=== PATIENT | male | born 1985 | race Asian ===

== ENCOUNTER 2024-09-12 11:01 | Outpatient (AMB) | payer OTHER, SELFPAY ==
--- NOTE | 2024-09-12 11:12 | MHC.PC.OV ---
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 Intake Note: patient here for new patient visit Rubberizing Mechanic Required: No Allergies No Known Allergies Allergy (Verified 09/12/24 11:32) Medication List - Last Reconciled 09/12/24 by Taylor Friedman CNP No Known Home Meds Tobacco use date assessed: 09/12/24 Dental Screening Dental Screen Date: 09/12/24 Did you have a dental visit in the last 12 months?: No Did you have a dental problem in the last 6 months where you did not have access to dental care?: No Was dental information given to patient?: Yes HPI HPI Comments History of Present Illness Details 38-year-old male [facility]. Relocated from [facility] to [facility] on 06/2024. Prior PCP? - In [place] Last office visit/CPE/labs - About 2 years ago Acute issue(s) - Fatigue, generalized body aches, and difficulty breathing, intermittent productive cough with green mucus, and nausea for the past 1 week. He was evaluated at [facility] ED on 09/10/2024. Most of his symptoms have completely resolved. Continues to experience mild generalized body aches and intermittent productive cough. His has similar symptoms. Review of [facility] ED notes on 09/10/2024: Labs, including TSH, EKG, and chest xray were reassuring. He was discharged home on Zofran. Past Medical History - Strabismus left eye (wears prescription glasses), Herniated disc L5 and S1 Surgical History - Back surgery (L5 and S1), left eye surgery to correct strabismus Family History - Mom: Diabetes, hypertension, hyperlipidemia, thyroid disorder - Dad: Cardiovascular disease, diabetes, hypertension, hyperlipidemia - MGM: Cardiovascular disease, diabetes, hypertension, hyperlipidemia - MGF: Hypertension - PGF: Hypertension Social History - Nonsmoker. Vapes 10 puffs of nicotine every 2 days, has been cutting down. Does not drink alcohol. Denies recreational drug use. - Has been making healthy dietary choices. Does not exercise. Generally sleep well. Health maintenance - Last eye exam was in February or March 2024 at [facility] in [place]. Routine eye care encouraged. He will sign a release for his PCP to obtain his eye record. - Last dental visit was over a year and half ago; encouraged to schedule an appointment with his dentist for routine dental care. - Last tetanus vaccine was more than 10 years ago; received Tdap vaccine today. - Has not been vaccinated for the flu this season; declines vaccination. [facility] Surgical History (Updated 09/12/24 @ 11:29 by Yanni Gutierrez) Previous back surgery History of eye surgery Family History (Updated 09/12/24 @ 11:29 by Yanni Gutierrez) Mother High blood pressure High cholesterol Diabetes Thyroid disorder Father High blood pressure High cholesterol Diabetes Cardiovascular disease Maternal Grandmother High blood pressure High cholesterol Diabetes Cardiovascular disease Maternal Grandfather High blood pressure Paternal Grandmother High blood pressure High cholesterol Diabetes Paternal Grandfather High blood pressure Social History Housing: House Patient Tobacco Use Status: Never used Tobacco Cigarettes Per Day: 1 (every 2 days with friends) e-Cigarette/Vaping Use: Currently Using Second Hand Smoke Exposure: No service: No Current occupational status: employed 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 1. Little interest or pleasure in doing things: not at all 2. Feeling down, depressed, or hopeless: not at all 3. Trouble falling or staying asleep, or sleeping too much: not at all 4. Feeling tired or having little energy: not at all 5. Poor appetite or overeating: not at all 6. Feeling bad about yourself - or that you are a failure or have let yourself or your family down: not at all 7. Trouble concentrating on things, such as reading the newspaper or watching television: not at all 8. Moving or speaking so slowly that other people could have noticed. Or the opposite - being so fidgety or restless that you have been moving around a lot more than usual: not at all 9. Thoughts that you would be better off or of hurting yourself in some way: not at all Total score: 0 Depression Screening Interpretation: Negative Depression Screening Done: Yes 99075 - PHQ-9 Billing: Yes Source: Developed by Drs. Delta Martin, Nahun Rossi and colleagues, with an educational rick from [employer]. Thrive Questionnaire Date Thrive assessed: 09/12/24 I am a: Patient What is your living situation today?: I have a steady place to live Within the past 12 months, did the food you bought not last and you didn't have the money to get more?: I choose not to answer this question Within the past 12 months, did you worry whether your food would run out before you got money to buy more?: I choose not to answer this question Do you have trouble paying for medicines?: Yes Do you have trouble getting transportation to medical appointments?: No Do you have trouble paying your heating and electricity bill?: No Do you have trouble taking care of your child, family member or friend?: No Do you have trouble with day-to-day activities such as bathing, preparing meals, shopping, managing finances, etc.?: No Are you currently unemployed and looking for a job?: No Are you interested in more education?: No Please select the resources that you would like help with: Food Currently or been in a relationship where the following occur: No concerns reported THRIVE Score: 0 AUDIT C Alcohol Use Questionnaire (AUDIT-C) 1. How often do you have a drink containing alcohol?: Never Total Score: 0 Score Reviewed/Action Taken: Yes KEYLA-7 AMB Questionnaire KEYLA-7 Date KEYLA - 7 assessed: 09/12/24 Feeling nervous, anxious, or on edge: 0 = Not at all Not being able to stop or control worryin = Not at all Worrying too much about different things: 0 = Not at all Trouble relaxin = Not at all Being so restless that it is hard to sit still: 0 = Not at all Becoming easily annoyed or irritable: 0 = Not at all Feeling afraid as if something awful might happen: 0 = Not at all Total KEYLA-7 score (0-4 normal; 5-9 mild; 10-14 moderate; 15-21 severe): 0 Source: Developed by Drs. Delta Martin, Nahun Rossi and colleagues, with an educational rick from [employer]. KEYLA-7 Assessment Billing KEYLA-7 Assessment Tool: KEYLA-7 Assessment 35039 Review of Systems Const Details: Denies chills, Denies fatigue, Denies fever(s), Denies headache(s) and Denies weakness HEENT Denies change in vision, Denies dizziness, Denies headache(s), Denies hearing loss, Denies nasal congestion, Denies sinus pain, Denies sinus pressure and Denies sore throat Card Denies chest pain, Denies lightheadedness, Denies dyspnea and Denies other (palpitations) Resp Reports cough, Denies dyspnea and Denies wheezing GI Denies abdominal pain, Denies melena, Denies hematochezia, Denies change in bowel habits, Denies dyspepsia and Denies nausea Denies hematuria and Denies dysuria Musc Reports myalgias, Denies abnormal gait, Denies arthralgias, Denies numbness and Denies tingling Skin/Breast Denies rash, Denies unusual bruising and Denies wounds Neuro Denies abnormal gait, Denies dizziness, Denies headache(s), Denies memory loss, Denies numbness, Denies Sensory deficit (Neuro), Denies tingling and Denies weakness Psych Denies anxiety, Denies depression and Denies memory loss Endo Denies cold intolerance, Denies fatigue, Denies heat intolerance, Denies polydipsia and Denies polyuria Rylan/Lymph Denies easy bleeding and Denies easy bruising Aller/Immun Denies wheezing Physical exam (Primary Care) Vital Signs: Last Vital Signs Temp 97.8 F 09/12/24 11:19 Pulse 81 09/12/24 11:19 Resp 16 09/12/24 11:19 BP 119/75 09/12/24 11:19 Pulse Ox 98 09/12/24 11:19 Oxygen Delivery Method Room Air 09/12/24 11:19 BMI result Body Mass Index 29.2 Tobacco/Smoking Status: Tobacco use Status Tobacco use date assessed 09/12/24 09/12/24 11:19 Patient Tobacco Use Status Current someday Tobacco 09/12/24 11:19 e-Cigarette/Vaping Use Currently Using 09/12/24 11:19 PHQ-9: PHQ-9 Score PHQ-9: Total score 0 09/12/24 11:15 Depression Screening Interpretation: Negative Thrive Assessment: Date of Thrive Assessment Date Thrive assessed 09/12/24 09/12/24 11:15 Currently or been in a relationship where the following occur: No concerns reported Const Other: General: no acute distress, well developed, alert and awake Nutritional Appearance: well nourished Orientation/consciousness: patient oriented x3 [facility] Head: Yes normocephalic and Yes atraumatic Ears: hearing grossly normal bilaterally and TM's normal bilaterally General nose exam: Normal external nose present and Normal nares present Mouth: Normal oral and palatal mucosa present and moist mucous membranes Teeth and gingiva: dentition normal Throat: Yes oropharynx normal Eyes Pupils: Equal, round and reactive pupils present and Pupil accommodation reflex normal EOM: EOMs intact bilaterally Neck Neck: Yes normal visual inspection, Yes no lymphadenopathy and Yes trachea midline Thyroid: Thyroid normal Carotids: no bruits Lymphatic: no lymphadenopathy noted Chest Chest palpation & inspection: normal inspection of the chest Resp Effort & Inspection: normal respiratory effort Auscultation: clear to auscultation bilaterally Cardio Rate: regular rate Rhythm: regular rhythm Heart sounds: S1 normal heart sound present, S2 normal heart sound present, no gallops, no murmurs and no rubs Bruits: no abdominal aortic bruits and no carotid bruits GI Palpation (GI): No Abdominal aortic bruit present, Soft to palpation, nontender, No hepatosplenomegaly present and No Rebound tenderness present Auscultation: normal bowel sounds General: Yes no CVA tenderness Back/Spine/Pelvis Back: no CVA tenderness Cervical Spine: cervical ROM normal and No Cervical spine tenderness Thoracic/Lumbar Spine: thoraco-lumbar ROM normal, No pain with thoraco-lumbar ROM, No thoracic spinal tenderness and No lumbar spinal tenderness Skin General: warm and dry. Normal skin color. Normal skin turgor Lesions: no lesions Rashes: no rashes Trauma: no lacerations or abrasions Wounds: no wounds Nails: normal Neuro General: patient oriented x3, gait normal and CN's II-XI intact bilaterally Cranial nerves: Yes Equal, round and reactive pupils present Cognition (Neuro): normal cognition Gait exam (Neuro): Normal gait present Motor exam (neuro): 5/5 motor strength present throughout Sensory Exam: No Sensory deficit (Neuro) Deep tendon reflexes (DTR's): Right patellar reflex intensity grade: 2+ and Left patellar reflex intensity grade: 2+ Extrem General: Yes normal to inspection, No edema and No calf tenderness Psych Appearance: grossly normal Affect: normal affect Attitude: cooperative Thought process: Normal thought process present Coding Level of Care Code New Pt Level 4 (88559) New Pt Prev Care 18-39yr(14104 Diagnoses Normal physical examination, routine Z00.00 Viral upper respiratory illness J06.9 Engages in vaping Z72.89 Laboratory tests ordered as part of a complete physical exam (CPE) Z00.00 Additional Codes KEYLA-7 Assessment Billing - KEYLA-7 Assessment Tool: KEYLA-7 Assessment 56820 ([id number]) PHQ-9 - 02896 - PHQ-9 Billing: Yes ([id number]) Assessment & Plan Assessment & Plan (1) Normal physical examination, routine: Code(s): Z00.00 - Encounter for general adult medical examination without abnormal findings Category: Medical Plan: No significant functional limitations noted. Will scan his recent blood work to his chart. Encouraged to get fasting lab work done and follow for telehealth visit for labs review in 6 weeks. Return sooner with symptoms or concerns. Verbalized understanding and agreed with treatment plan. (2) Viral upper respiratory illness: Code(s): J06.9 - Acute upper respiratory infection, unspecified Category: Medical Plan: Likely viral illness though possibly allergies. No exam evidence of bacterial infection Viral illness There is no antibiotic medication for viruses.? They must run their course.? Most average 5-7 days but 7-10 days is not uncommon and up to 14 days is still possible.? A cough is often the last symptom to resolve and this can last for weeks in some cases. Rest Hydrate well -? Drink plenty of fluids.? Especially water. Tylenol or ibuprofen for muscle aches, headache, fever/discomfort Cannot rule out COVID-19/RSV/Flu infection Nasal swab acquired and will be sent to the lab Return for new or worsening symptoms Verbalized understanding and agreed with treatment plan. (3) Engages in vaping: Code(s): Z72.89 - Other problems related to lifestyle Category: Medical Plan: He vapes 10 puffs of nicotine every 2 days and has been cutting down. Instructed on the health risks and complications of nicotine and vaping encouraged to stop. Declines medication treatment for nicotine use and notes that he would continue to cut down and stop vaping. Follow-up with PCP as needed. Verbalized understanding and agreed with the plan. (4) Laboratory tests ordered as part of a complete physical exam (CPE): Code(s): Z00.00 - Encounter for general adult medical examination without abnormal findings Category: Medical Plan: Fasting labs ordered as part of a complete physical exam. Advised to fast for at least 10 hours before getting labs drawn. May drink water Verbalized understanding and agreed with treatment plan. Orders: Orders Lipid Panel Today Z00.00 - Encounter for general adult medical examination without abnormal findings Glucose Fasting Today Z00.00 - Encounter for general adult medical examination without abnormal findings UA CC w/rflx Micro + Cult Today Z00.00 - Encounter for general adult medical examination without abnormal findings Complete Blood Count Auto Diff Today Z00.00 - Encounter for general adult medical examination without abnormal findings
[2024-09-12 11:19] VITALS: BP 119/75; PULSE 81; RESP 16; TEMP 36.6; O2SAT 98; BMI 29.2
== END 2024-09-12 12:10 | disposition home or self-care (01) ==
PROVIDERS: PCP Nurse Practitioner Family; Visit Provider Nurse Practitioner Family
DX: Z00.00 Encounter for general adult medical examination without abnormal findings (principal); J06.9 Acute upper respiratory infection, unspecified; Z72.89 Other problems related to lifestyle

== ENCOUNTER 2024-09-12 11:01 | Outpatient (REF) | payer OTHER, SELFPAY ==
[2024-09-12 18:28] LABS: Influenza A PCR NEGATIVE (Negative); Influenza B PCR NEGATIVE (Negative); Resp Syncy Virus RNA Qual PCR NEGATIVE (Negative); SARS COV2 PCR INHOUSE NEGATIVE (Negative)
== END 2024-09-12 11:02 | disposition home or self-care (01) ==
LOC: HO.LAB 11:01
PROVIDERS: PCP Nurse Practitioner Family; Visit Provider Nurse Practitioner Family
DX: Z00.01 Encounter for general adult medical examination with abnormal findings (principal); J06.9 Acute upper respiratory infection, unspecified; Z72.89 Other problems related to lifestyle
CPT/HCPCS: 0241U; 96127; 99202; 99385

== ENCOUNTER 2024-11-01 10:33 | Outpatient (REF) | payer OTHER, SELFPAY ==
[2024-11-01 14:29] LABS: MANUAL DIFF FLAG NO
[2024-11-01 14:35] LABS: Basophils Percent Auto 0.4 % (0-2); Eosinophils Absolute Auto 0.3 X10*3/uL (0.0-0.4); Hematocrit 42.9 % (42.0-52.0); Hemoglobin 13.5 g/dl (14.0-18.0); Imm Gran Abs Auto 0.02 X10*3/uL (0.00-0.03); Imm Gran Pct Auto 0.3 % (0.0-0.4); Lymphocytes Absolute Auto 2.7 X10*3/uL (1.2-4.9); Lymphocytes Percent Auto 40.1 % (20-40); Mean Corpuscular HGB Conc 31.5 g/dl (31.0-36.0); Mean Corpuscular Hemoglobin 24.4 pg (27.0-33.0); Mean Corpuscular Volume 77.4 fL (80.0-98.0); Mean Platelet Volume 12.1 fL (9.4-12.4); Monocytes Absolute Auto 0.5 X10*3/uL (0.1-1.2); Monocytes Percent Auto 7.2 % (2-11); Neutrophils Absolute Auto 3.2 x10*3/uL (2.0-8.3); Platelet Count 271 X10*3/uL (160-400); Red Blood Count 5.54 X10*6/uL (4.60-5.80); Red Cell Distribution Width 13.3 % (11.0-16.0); White Blood Count 6.8 X10*3/uL (4.8-10.8)
[2024-11-01 14:38] LABS: Appearance Urine Turbid; Color Urine Yellow; Glucose Urine UA Negative (Negative); Leukocyte Esterase Urine Negative (Negative); Nitrite Urine Negative (Negative); PH 5.5 (5.0-9.0); Urine Blood Negative (Negative); Urine Ketones Negative (Negative); Urine Protein Negative (Neg-Trace)
[2024-11-01 15:05] LABS: Cholesterol 128 mg/dL (<200); Glucose Fasting 97 mg/dL (60-99); HDL Cholesterol 42 mg/dL (>40); LDL Cholesterol Calculated 78 mg/dL (<100); Triglycerides 44 mg/dL (<150)
== END 2024-11-01 10:34 | disposition home or self-care (01) ==
LOC: HO.WFDLDS 10:33
PROVIDERS: Visit Provider Nurse Practitioner Family
DX: Z00.00 Encounter for general adult medical examination without abnormal findings (principal)
CPT/HCPCS: 36415; 80061; 81003; 82947; 85025

== ENCOUNTER 2024-11-05 08:32 | Outpatient (AMB) | payer OTHER, SELFPAY ==
--- NOTE | 2024-11-05 08:33 | MHC.PC.OV ---
Vital Signs 11/05/24 08:38 Height 5 ft 7 in Weight 187 lb BMI 29.3 BP 113/67 Blood Pressure Location Lt brachial Position Sitting Respiration 16 Pulse 75 Pulse Source Pulse Oximeter Temp 98.2 F Temp Source Oral Pulse Oximetry (%) 99 Oxygen Delivery Method Room Air Intake Visit Reasons: 6 wks labs review rescheduled from 10/23 Intake Note: patient here for follow up on labs and would like to speak to provider about allergy season. Type Proof Reproducer Required: No Allergies No Known Allergies Allergy (Verified 11/05/24 08:46) Medication List - Last Reconciled 11/05/24 by Taylor Friedman CNP No Known Home Meds Tobacco use date assessed: 11/05/24 Dental Screening Dental Screen Date: 11/05/24 Did you have a dental visit in the last 12 months?: No Did you have a dental problem in the last 6 months where you did not have access to dental care?: No Was dental information given to patient?: Patient has dentist HPI HPI Comments History of Present Illness Details 38-year-old male presents for recent labs review follow-up. He offers no complaints and denies acute symptoms at this time. Reports chronic persistent pain to the MCP joint of his left thumb for about a month and a half. He is unable to describe the pain. The pain intensifies with movement to ROM of the thumb. He denies fall, injury, or trauma. He denies tingling or numbness. He has not been taking any medication for pain. He reports severe allergy to pollen last spring. Antihistamines were not effective. [facility] Surgical History (Updated 09/12/24 @ 11:29 by Yanni Gutierrez) Previous back surgery History of eye surgery Family History (Updated 09/12/24 @ 11:29 by Yanni Gutierrez) Mother High blood pressure High cholesterol Diabetes Thyroid disorder Father High blood pressure High cholesterol Diabetes Cardiovascular disease Maternal Grandmother High blood pressure High cholesterol Diabetes Cardiovascular disease Maternal Grandfather High blood pressure Paternal Grandmother High blood pressure High cholesterol Diabetes Paternal Grandfather High blood pressure Social History Housing: House Patient Tobacco Use Status: Never used Tobacco Cigarettes Per Day: 1 (every 2 days with friends) e-Cigarette/Vaping Use: Currently Using Second Hand Smoke Exposure: No service: No Current occupational status: employed 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 Current occupational exposures/hazards: No Cognitive needs: No Hearing needs: No Vision needs: Yes Questionnaire Thrive Questionnaire Date Thrive assessed: 09/12/24 I am a: Patient What is your living situation today?: I have a steady place to live Within the past 12 months, did the food you bought not last and you didn't have the money to get more?: I choose not to answer this question Within the past 12 months, did you worry whether your food would run out before you got money to buy more?: I choose not to answer this question Do you have trouble paying for medicines?: Yes Do you have trouble getting transportation to medical appointments?: No Do you have trouble paying your heating and electricity bill?: No Do you have trouble taking care of your child, family member or friend?: No Do you have trouble with day-to-day activities such as bathing, preparing meals, shopping, managing finances, etc.?: No Are you currently unemployed and looking for a job?: No Are you interested in more education?: No Please select the resources that you would like help with: Food Currently or been in a relationship where the following occur: No concerns reported THRIVE Score: 0 AUDIT C Alcohol Use Questionnaire (AUDIT-C) 3. How often do you have six or more drinks on one occasion?: Never Total Score: 0 KEYLA-7 AMB Questionnaire KEYLA-7 Date KEYLA - 7 assessed: 09/12/24 Source: Developed by Drs. Delta Martin, Sapna Witt, Nahun Mejia and colleagues, with an educational rick from [employer]. Review of Systems Const Details: Const Denies chills, Denies fatigue, Denies fever(s), Denies headache(s) and Denies weakness ENT Denies dizziness and Denies headache(s) Card Denies chest pain, Denies lightheadedness, Denies dyspnea and Denies other (Palpitations) Resp Denies cough, Denies dyspnea, Denies wheezing and Denies other ( shortness of breath) GI Denies abdominal pain, Denies melena, Denies hematochezia, Denies change in bowel habits, Denies dyspepsia and Denies nausea Denies hematuria and Denies dysuria Musc Reports left thumb pain, Denies abnormal gait, Denies numbness and Denies tingling Skin/Breast Denies rash, Denies unusual bruising and Denies wounds Neuro Denies abnormal gait, Denies dizziness, Denies headache(s), Denies memory loss, Denies numbness, Denies Sensory deficit (Neuro), Denies tingling and Denies weakness Psych Denies anxiety, Denies depression, Denies memory loss Endo Denies cold intolerance, Denies fatigue, Denies heat intolerance, Denies polydipsia and Denies polyuria Aller/Immun Denies wheezing Physical exam (Primary Care) Tobacco/Smoking Status: Tobacco use Status Tobacco use date assessed 09/12/24 09/12/24 11:19 Patient Tobacco Use Status Never used Tobacco 09/12/24 12:18 e-Cigarette/Vaping Use Currently Using 09/12/24 11:19 Thrive Assessment: Date of Thrive Assessment Date Thrive assessed 09/12/24 09/12/24 11:15 Currently or been in a relationship where the following occur: No concerns reported Const Other: General: no acute distress and well developed Nutritional Appearance: well nourished Orientation/consciousness: patient oriented x3 HENMT Head: Yes normocephalic and Yes atraumatic Eyes General: appearance normal, both eyes and all related structures Pupils: Equal, round and reactive pupils present EOM: EOMs intact bilaterally Resp Effort & Inspection: normal respiratory effort Auscultation: clear to auscultation bilaterally Cardio Rate: regular rate Rhythm: regular rhythm Heart sounds: S1 normal heart sound present, S2 normal heart sound present, no gallops, no murmurs and no rubs GI Palpation (GI): No Abdominal aortic bruit present, Soft to palpation, nontender, No hepatosplenomegaly present and No Rebound tenderness present Auscultation: normal bowel sounds General: Yes no CVA tenderness Back/Spine/Pelvis Back: no CVA tenderness Cervical Spine: cervical ROM normal and No Cervical spine tenderness Thoracic/Lumbar Spine: thoraco-lumbar ROM normal, No pain with thoraco-lumbar ROM, No thoracic spinal tenderness and No lumbar spinal tenderness Extrem General: Yes normal to inspection, No edema and No calf tenderness. Normal ROM of the left thumb. Left thumb tenderness with ROM. No erythema, edema, or overt injury or trauma. Skin General: warm and dry. Normal skin color. Normal skin turgor Neuro General: patient oriented x3, gait normal and no focal neuro deficit Cranial nerves: Yes Equal, round and reactive pupils present Cognition (Neuro): normal cognition Gait exam (Neuro): Normal gait present Sensory Exam: No Sensory deficit (Neuro) Psych Appearance: grossly normal Affect: normal affect Attitude: cooperative Thought process: Normal thought process present Coding Level of Care Code Est Pt Level 4 (27580) Diagnoses Mild anemia D64.9 Pain of left thumb M79.645 Pollen allergy Z91.09 Assessment & Plan Assessment & Plan (1) Mild anemia: Code(s): D64.9 - Anemia, unspecified Category: Medical Plan: Recent hemoglobin is slightly low, 13.5, hematocrit is normal, 42.9, MCV is low, 77.4. Likely iron-deficiency anemia. Will recheck CBC and check iron studies, vitamin B12, and folate levels. Will review results and make changes as needed. Advised to schedule his next physical for on or after 09/12/2025. Return sooner with symptoms or concerns. Verbalized understanding and agreed with treatment plan. (2) Pain of left thumb: Code(s): M79.645 - Pain in left finger(s) Category: Medical Plan: Normal ROM of the left thumb. Left thumb tenderness with ROM. No erythema, edema, or overt injury or trauma. Likely tendinitis of the MCP joint of the left thumb. Encouraged to take NSAIDs such as ibuprofen 600 mg every 6-8 hours as needed for pain. Advised to take with food. Warm/cool compresses encouraged. Follow-up with worsening or new symptoms. Verbalized understanding and agreed with treatment plan. (3) Pollen allergy: Code(s): Z91.09 - Other allergy status, other than to drugs and biological substances Category: Medical Plan: History of severe allergy to pollen. Encouraged to take antihistamine such as cetirizine once a day before onset of allergy symptoms. Follow-up as needed. Verbalized understanding and agreed with the plan. Orders: Orders Vitamin B12 and Folate Today D64.9 - Anemia, unspecified Complete Blood Count no Diff Today D64.9 - Anemia, unspecified IRON PROFILE Today D64.9 - Anemia, unspecified Ferritin Today D64.9 - Anemia, unspecified
[2024-11-05 08:38] VITALS: BP 113/67; PULSE 75; RESP 16; TEMP 36.8; O2SAT 99; BMI 29.3
== END 2024-11-05 08:57 | disposition home or self-care (01) ==
PROVIDERS: PCP Nurse Practitioner Family; Visit Provider Nurse Practitioner Family
DX: D64.9 Anemia, unspecified (principal); M79.645 Pain in left finger(s); Z91.09 Other allergy status, other than to drugs and biological substances

== ENCOUNTER 2024-11-05 09:22 | Outpatient (REF) | payer OTHER, SELFPAY ==
[2024-11-05 11:49] LABS: Hemoglobin 13.5 g/dl (14.0-18.0); Mean Corpuscular HGB Conc 31.4 g/dl (31.0-36.0); Mean Corpuscular Hemoglobin 24.5 pg (27.0-33.0); Mean Corpuscular Volume 78.2 fL (80.0-98.0); Mean Platelet Volume 11.8 fL (9.4-12.4); Platelet Count 262 X10*3/uL (160-400); Red Cell Distribution Width 13.2 % (11.0-16.0)
[2024-11-05 12:25] LABS: Iron 60 mcg/dL (45-160); Percent Iron Saturation 21 % (15-50); Total Iron Binding Capacity 283 mcg/dL (228-428); Unsaturated Iron Binding 223 ug/dL
[2024-11-05 12:42] LABS: Ferritin 214 ng/mL (20-250)
[2024-11-05 12:52] LABS: Folate 5.5 ng/mL (> or = 4.0); Vitamin B12 270 pg/mL (200-900)
== END 2024-11-05 09:23 | disposition home or self-care (01) ==
LOC: HO.WFDLDS 09:22
PROVIDERS: Visit Provider Nurse Practitioner Family
DX: D64.9 Anemia, unspecified (principal)
CPT/HCPCS: 36415; 82607; 82728; 82746; 83540; 85027

== ENCOUNTER 2025-02-12 10:45 | Outpatient (AMB) | payer OTHER, SELFPAY ==
--- NOTE | 2025-02-12 10:48 | A.OFFPC_ITS ---
Vital Signs 02/12/25 10:53 Height 5 ft 7 in Weight 187 lb 2 oz BMI 29.3 BP 119/71 Blood Pressure Location Lt brachial Position Sitting Respiration 16 Pulse 75 Pulse Source Pulse Oximeter Temp 97.7 F Temp Source Oral Pulse Oximetry (%) 97 Oxygen Delivery Method Room Air Intake Visit Reasons: Allergy symptoms mari 01/21 Intake Note: patient here c/o Allergy Symptoms Speech Therapist Required: No Allergies pollen Allergy (Severe, Uncoded 02/12/25 11:31) Eye Swelling Medication List - Last Reconciled 02/12/25 by Taylor Friedman CNP cetirizine 10 mg PO DAILY Tobacco use date assessed: 02/12/25 Dental Screening Dental Screen Date: 02/12/25 Did you have a dental visit in the last 12 months?: Yes Did you have a dental problem in the last 6 months where you did not have access to dental care?: No Was dental information given to patient?: Patient has dentist HPI HPI Comments History of Present Illness Details 39-year-old male presents with complaint s of pollen allergy symptoms. He reports trying two different allergy medications, including cetirizine which was prescribed at an urgent care about a month ago. He notes that cetirizine has been helpful with controlling his itching. However, he continues to experience watery eyes and nasal congestion. He requests referral to an tester semiconductor packages. [facility] Surgical History (Updated 09/12/24 @ 11:29 by Yanni Gutierrez MA) Previous back surgery History of eye surgery Family History (Updated 09/12/24 @ 11:29 by Yanni Gutierrez MA) Mother High blood pressure High cholesterol Diabetes Thyroid disorder Father High blood pressure High cholesterol Diabetes Cardiovascular disease Maternal Grandmother High blood pressure High cholesterol Diabetes Cardiovascular disease Maternal Grandfather High blood pressure Paternal Grandmother High blood pressure High cholesterol Diabetes Paternal Grandfather High blood pressure Social History Housing: House Patient Tobacco Use Status: Never used Tobacco Cigarettes Per Day: 1 (every 2 days with friends) e-Cigarette/Vaping Use: Currently Using Second Hand Smoke Exposure: No service: No Current occupational status: employed 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 Current occupational exposures/hazards: No Cognitive needs: No Hearing needs: No Vision needs: Yes Questionnaire Thrive Questionnaire Date Thrive assessed: 09/12/24 I am a: Patient What is your living situation today?: I have a steady place to live Within the past 12 months, did the food you bought not last and you didn't have the money to get more?: I choose not to answer this question Within the past 12 months, did you worry whether your food would run out before you got money to buy more?: I choose not to answer this question Do you have trouble paying for medicines?: Yes Do you have trouble getting transportation to medical appointments?: No Do you have trouble paying your heating and electricity bill?: No Do you have trouble taking care of your child, family member or friend?: No Do you have trouble with day-to-day activities such as bathing, preparing meals, shopping, managing finances, etc.?: No Are you currently unemployed and looking for a job?: No Are you interested in more education?: No Please select the resources that you would like help with: Food Currently or been in a relationship where the following occur: No concerns reported THRIVE Score: 0 KEYLA-7 AMB Questionnaire KEYLA-7 Date KEYLA - 7 assessed: 09/12/24 Source: Developed by Drs. Delta Martin, Sapna Witt, Nahun Mejia and colleagues, with an educational rick from [employer]. Review of Systems Const Details: Const Denies chills, Denies fatigue, Denies fever(s), Denies headache(s) and Denies weakness ENT Reports as per HPI Card Denies chest pain, Denies lightheadedness, Denies dyspnea and Denies other (Palpitations) Resp Denies cough, Denies dyspnea, Denies wheezing and Denies other ( shortness of breath) GI Denies abdominal pain, Denies melena, Denies hematochezia, Denies change in bowel habits, Denies dyspepsia and Denies nausea Denies hematuria and Denies dysuria Musc Denies abnormal gait, Denies myalgias, Denies arthralgias, Denies numbness and Denies tingling Skin/Breast Denies rash, Denies unusual bruising and Denies wounds Neuro Denies abnormal gait, Denies dizziness, Denies headache(s), Denies memory loss, Denies numbness, Denies Sensory deficit (Neuro), Denies tingling and Denies weakness Psych Denies anxiety, Denies depression, Denies memory loss Endo Denies cold intolerance, Denies fatigue, Denies heat intolerance, Denies polydipsia and Denies polyuria Aller/Immun Denies wheezing Physical exam (Primary Care) Vital Signs: Last Vital Signs Temp 97.7 F 02/12/25 10:53 Pulse 75 02/12/25 10:53 Resp 16 02/12/25 10:53 BP 119/71 02/12/25 10:53 Pulse Ox 97 02/12/25 10:53 Oxygen Delivery Method Room Air 02/12/25 10:53 BMI result Body Mass Index 29.3 Tobacco/Smoking Status: Tobacco use Status Tobacco use date assessed 02/12/25 02/12/25 10:55 Patient Tobacco Use Status Never used Tobacco 02/12/25 10:51 e-Cigarette/Vaping Use Currently Using 02/12/25 10:51 Thrive Assessment: Date of Thrive Assessment Date Thrive assessed 09/12/24 02/12/25 10:51 Currently or been in a relationship where the following occur: No concerns reported Const Other: General: no acute distress and well developed Nutritional Appearance: well nourished Orientation/consciousness: patient oriented x3 HEN[facility] Head is normocephalic Bilateral ear canal and TM are normal Nasal turbinates and oropharynx are pink and moist Sinuses are nontender with palpation No auricular or cervical lymphadenopathy Eyes General: appearance normal, both eyes and all related structures Pupils: Equal, round and reactive pupils present EOM: EOMs intact bilaterally Resp Effort & Inspection: normal respiratory effort Auscultation: clear to auscultation bilaterally Cardio Rate: regular rate Rhythm: regular rhythm Heart sounds: S1 normal heart sound present, S2 normal heart sound present, no gallops, no murmurs and no rubs GI Palpation (GI): No Abdominal aortic bruit present, Soft to palpation, nontender, No hepatosplenomegaly present and No Rebound tenderness present Auscultation: normal bowel sounds General: Yes no CVA tenderness Back/Spine/Pelvis Back: no CVA tenderness Cervical Spine: cervical ROM normal and No Cervical spine tenderness Thoracic/Lumbar Spine: thoraco-lumbar ROM normal, No pain with thoraco-lumbar ROM, No thoracic spinal tenderness and No lumbar spinal tenderness Extrem General: Yes normal to inspection, No edema and No calf tenderness Skin General: warm and dry. Normal skin color. Normal skin turgor Neuro General: patient oriented x3, gait normal and no focal neuro deficit Cranial nerves: Yes Equal, round and reactive pupils present Cognition (Neuro): normal cognition Gait exam (Neuro): Normal gait present Sensory Exam: No Sensory deficit (Neuro) Psych Appearance: grossly normal Affect: normal affect Attitude: cooperative Thought process: Normal thought process present Coding Level of Care Code Est Pt Level 3 (08860) Diagnoses Pollen allergy Z91.09 Assessment & Plan Assessment & Plan (1) Pollen allergy: Code(s): Z91.09 - Other allergy status, other than to drugs and biological substances Category: Medical Plan: Normal physical exam. Continue to take cetirizine 10 mg daily. Flonase ordered; advised to use as prescribed. Instructed on the risks, benefits, and potential adverse reactions of the medication. Referred to an tester semiconductor packages as requested. Follow-up with worsening or new symptoms. Verbalized understanding and agreed with the treatment plan. Orders: Referrals Allergy & Immunology Referral Z91.09 - Other allergy status, other than to drugs and biological substances Medications: New fluticasone propionate 50 mcg/actuation (Flonase Allergy Relief) Administer into each nostril. Two actuations in each nostril daily x1 week; and then 1-2 actuations in each nostril daily 2 sprays intranasal DAILY 16 grams 2RF
[2025-02-12 10:53] VITALS: BP 119/71; PULSE 75; RESP 16; TEMP 36.5; O2SAT 97; BMI 29.3
== END 2025-02-12 11:40 | disposition home or self-care (01) ==
LOC: HO.HMCFM 10:46
PROVIDERS: PCP Nurse Practitioner Family; Visit Provider Nurse Practitioner Family
DX: Z91.09 Other allergy status, other than to drugs and biological substances (principal)

== ENCOUNTER → 2025-02-12 10:45 | Outpatient (BNVA) | payer OTHER, SELFPAY | PROVIDERS: PCP Nurse Practitioner Family; Visit Provider Nurse Practitioner Family | DX: Z91.09 Other allergy status, other than to drugs and biological substances (principal); Z79.899 Other long term (current) drug therapy | CPT/HCPCS: 99212 ==

== ENCOUNTER 2025-08-12 09:19 | Outpatient (AMB) | payer OTHER, SELFPAY ==
--- NOTE | 2025-08-12 09:30 | A.OFFPC_ITS ---
Vital Signs 08/12/25 09:41 Height 5 ft 7 in Weight 190 lb BMI 29.8 BP 129/81 Blood Pressure Location Rt brachial Position Sitting Respiration 16 Pulse 78 Pulse Source Pulse Oximeter Temp 97.3 F Temp Source Oral Pulse Oximetry (%) 98 Oxygen Delivery Method Room Air Intake Visit Reasons: [place] discharge Intake Note: patient here for ED discharge from [place] discharge Human Resources Compensation Analyst Required: No Allergies pollen Allergy (Severe, Uncoded 08/12/25 09:55) Eye Swelling Medication List - Last Reconciled 08/12/25 by Taylor Friedman CNP cetirizine 10 mg PO DAILY fluticasone propionate 50 mcg/actuation (Flonase Allergy Relief) 2 sprays intranasal DAILY Tobacco use date assessed: 08/12/25 Dental Screening Dental Screen Date: 08/12/25 Did you have a dental visit in the last 12 months?: No Did you have a dental problem in the last 6 months where you did not have access to dental care?: No Was dental information given to patient?: Patient has dentist HPI HPI Comments History of Present Illness Details 39-year-old male presents for ED dischar ge follow-up. He was evaluated at [facility] ED on 07/04/2025 for cramping in his right thigh. Labs were unremarkable. Ultrasound of the right thigh was normal without evidence of DVT. He was discharged home with instructions to follow-up with his PCP. He reports h/o cramping to his right posterior thigh especially in the winter. He has not experienced cramping to the thigh since discharged from the ED. He notes intermittent cramping like pain to his upper arm ( anterior shoulder and bicep) 1-2 times weekly in the past 1 month. He states that the pain is usually localized, like a tiny ball, and usually inproves after he moves his arm. The last time he experienced the pain was 4 days ago. No acute symptoms at this time. [facility] Surgical History (Updated 09/12/24 @ 11:29 by KAREN Dior) Previous back surgery History of eye surgery Family History (Updated 09/12/24 @ 11:29 by KAREN Dior) Mother High blood pressure High cholesterol Diabetes Thyroid disorder Father High blood pressure High cholesterol Diabetes Cardiovascular disease Maternal Grandmother High blood pressure High cholesterol Diabetes Cardiovascular disease Maternal Grandfather High blood pressure Paternal Grandmother High blood pressure High cholesterol Diabetes Paternal Grandfather High blood pressure Social History Housing: House Patient Tobacco Use Status: Never used Tobacco Cigarettes Per Day: 1 (every 2 days with friends) e-Cigarette/Vaping Use: Currently Using Second Hand Smoke Exposure: No service: No Current occupational status: employed 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 [employer] Current occupational exposures/hazards: No Cognitive needs: No Hearing needs: No Vision needs: Yes Questionnaire Thrive Questionnaire Date Thrive assessed: 09/12/24 I am a: Patient What is your living situation today?: I have a steady place to live Within the past 12 months, did the food you bought not last and you didn't have the money to get more?: I choose not to answer this question Within the past 12 months, did you worry whether your food would run out before you got money to buy more?: I choose not to answer this question Do you have trouble paying for medicines?: Yes Do you have trouble getting transportation to medical appointments?: No Do you have trouble paying your heating and electricity bill?: No Do you have trouble taking care of your child, family member or friend?: No Do you have trouble with day-to-day activities such as bathing, preparing meals, shopping, managing finances, etc.?: No Are you currently unemployed and looking for a job?: No Are you interested in more education?: No Please select the resources that you would like help with: Food Currently or been in a relationship where the following occur: No concerns reported THRIVE Score: 0 KEYLA-7 AMB Questionnaire KEYLA-7 Date KEYLA - 7 assessed: 09/12/24 Source: Developed by Drs. Delta Martin, Sapna Witt, Nahun Mejia and colleagues, with an educational rick from [employer]. Review of Systems Const Details: Const Denies chills, Denies fatigue, Denies fever(s), Denies headache(s) and Denies weakness ENT Denies dizziness and Denies headache(s) Card Denies chest pain, Denies lightheadedness, Denies dyspnea and Denies other (Palpitations) Resp Denies cough, Denies dyspnea, Denies wheezing and Denies other ( shortness of breath) GI Denies abdominal pain, Denies melena, Denies hematochezia, Denies change in bowel habits, Denies dyspepsia and Denies nausea Denies hematuria and Denies dysuria Musc Denies abnormal gait, Denies myalgias, Denies arthralgias, Denies numbness and Denies tingling Skin/Breast Denies rash, Denies unusual bruising and Denies wounds Neuro Denies abnormal gait, Denies dizziness, Denies headache(s), Denies memory loss, Denies numbness, Denies Sensory deficit (Neuro), Denies tingling and Denies weakness Psych Denies anxiety, Denies depression, Denies memory loss Endo Denies cold intolerance, Denies fatigue, Denies heat intolerance, Denies polydipsia and Denies polyuria Aller/Immun Denies wheezing Physical exam (Primary Care) Vital Signs: Last Vital Signs Temp 97.3 F 08/12/25 09:41 Pulse 78 08/12/25 09:41 Resp 16 08/12/25 09:41 BP 129/81 08/12/25 09:41 Pulse Ox 98 08/12/25 09:41 Oxygen Delivery Method Room Air 08/12/25 09:41 BMI result Body Mass Index 29.8 Tobacco/Smoking Status: Tobacco use Status Tobacco use date assessed 08/12/25 08/12/25 09:44 Patient Tobacco Use Status Never used Tobacco 08/12/25 09:30 e-Cigarette/Vaping Use Currently Using 08/12/25 09:30 Thrive Assessment: Date of Thrive Assessment Date Thrive assessed 09/12/24 08/12/25 09:30 Currently or been in a relationship where the following occur: No concerns reported Const Other: General: no acute distress and well developed Nutritional Appearance: well nourished Orientation/consciousness: patient oriented x3 [facility] Head: Yes normocephalic and Yes atraumatic Eyes General: appearance normal, both eyes and all related structures Pupils: Equal, round and reactive pupils present EOM: EOMs intact bilaterally Resp Effort & Inspection: normal respiratory effort Auscultation: clear to auscultation bilaterally Cardio Rate: regular rate Rhythm: regular rhythm Heart sounds: S1 normal heart sound present, S2 normal heart sound present, no gallops, no murmurs and no rubs Extrem General: Yes normal to inspection, No edema and No calf tenderness Skin General: warm and dry. Normal skin color. Normal skin turgor Neuro General: patient oriented x3, gait normal and no focal neuro deficit Cranial nerves: Yes Equal, round and reactive pupils present Cognition (Neuro): normal cognition Gait exam (Neuro): Normal gait present Sensory Exam: No Sensory deficit (Neuro) Psych Appearance: grossly normal Affect: normal affect Attitude: cooperative Thought process: Normal thought process present Coding Level of Care Code Est Pt Level 4 (57334) Diagnoses Muscle cramping R25.2 Hospital discharge follow-up Z51.89 Assessment & Plan Assessment & Plan (1) Muscle cramping: Code(s): R25.2 - Cramp and spasm Category: Medical Plan: Reports intermittent cramps to his right upper arm and right thigh. No acute symptoms at this time. Normal physical exam. Encouraged exercise, stretching, and warm compresses. May take Tylenol ibuprofen for pain or discomfort. Follow-up with PCP as planned or return sooner with symptoms or concerns. Verbalized understanding and agreed with the plan. (2) Hospital discharge follow-up: Code(s): Z51.89 - Encounter for other specified aftercare Category: Medical Plan: Plan as above. Medications: New cetirizine 10 mg PO DAILY 90 tabs 0RF
[2025-08-12 09:41] VITALS: BP 129/81; PULSE 78; RESP 16; TEMP 36.3; O2SAT 98; BMI 29.8
== END 2025-08-12 10:11 | disposition home or self-care (01) ==
LOC: HO.HMCFM 09:20
PROVIDERS: PCP Nurse Practitioner Family; Visit Provider Nurse Practitioner Family
DX: R25.2 Cramp and spasm (principal); Z51.89 Encounter for other specified aftercare

== ENCOUNTER → 2025-08-12 09:19 | Outpatient (BNVA) | payer OTHER, SELFPAY | PROVIDERS: PCP Nurse Practitioner Family; Visit Provider Nurse Practitioner Family | DX: Z51.89 Encounter for other specified aftercare (principal); R25.2 Cramp and spasm | CPT/HCPCS: 99212 ==